=== PATIENT | female | born 1965 | race Caucasian/White ===

== ENCOUNTER → 2020-08-04 | Outpatient (CLI) | payer BC ==
--- NOTE | 2020-08-04 09:05 | BD ---
EXAMINATION TYPE: Axial Bone Density DATE OF EXAM: 08/04/2020 COMPARISON: NONE CLINICAL HISTORY: Postmenopausal female Height: 5 FT 1 1/2 IN Weight: 120 FRAX RISK QUESTIONS: Alcohol (3 or more units per day): NO Family History (Parent hip fracture): NO Glucocorticoids (More than 3mos): NO (Ex: prednisone, prednisolone, methylprednisolone, dexamethasone, and hydrocortisone). History of Fracture in Adulthood: NO Secondary Osteoporosis: NO 1. Type 1 Diabetes: NO 2. Hyperthyroidism: NO 3. Menopause before 45: NO 4. Malnutrition: NO 5. Chronic liver disease: NO Rheumatoid Arthritis: NO Current Tobacco Use: NO RISK FACTORS HISTORY OF: Surgery to Spine/Hip(right/left)/Wrist (right/left): NO Family History of Osteoporosis: NO Active: YES Diet low in dairy products/other sources of calcium: NO Postmenopausal woman: AGE 50 If Premenopausal, do you have irregular periods: NA Take estrogen and/or progesterone medications: NONE Lost more than 2 inches in height since high school: NO MEDICATIONS: Prednisone or other steroids: How Long: Thyroid Medications: Which medication: How Long: Osteoporosis Medications: Which medication: How Long: Additional Medications: NONE Additional History: EXAM MEASUREMENTS: Bone mineral densitometry was performed using the [employer] HR System. Bone mineral density as measured about the Lumbar spine is: ----- L1-L4(G/cm2): 1.061 T Score Values are as follows: ----- L2: -0.5 ----- L3: -0.1 ----- L4: -1.7 ----- L1-L4: -1.0 BASELINE Bone mineral density about the R hip (g/cm2): 0.865 Bone mineral density about the L hip (g/cm2): 0.825 T Score values are as follows: -----R Neck: -1.2 -----L Neck: -1.5 -----R Total: -0.8 -----L Total: -0.8 BASELINE IMPRESSION: Osteopenia (T Score between -2.5 and -1). There is slightly increased risk of fracture and the patient may be considered for treatment. Re-Screen 2-5 years. NOTE: T-SCORE=SD OF THE YOUNG ADULT MEAN.
[2020-08-04 09:12] LABS: HCT 39.8 % (34.0-46.0); HGB 12.7 gm/dL (11.4-16.0); MCH 29.2 pg (25.0-35.0); MCHC 31.9 g/dL (31.0-37.0); MCV 91.7 fL (80.0-100.0); Mean Platelet Volume 7.8; Platelet Count 195 k/uL (150-450); RBC 4.34 m/uL (3.80-5.40); RDW 13.7 % (11.5-15.5); WBC 5.6 k/uL (3.8-10.6)
[2020-08-04 11:11] LABS: C Reactive Protein <0.5 mg/dL (<1.0); Glucose 83 mg/dL (74-99)
[2020-08-04 11:26] LABS: T4, Free (Free Thyroxine) 0.88 ng/dL (0.78-2.19)
[2020-08-04 18:15] LABS: Hemoglobin A1C 5.8 % (4.0-6.0)
[2020-08-04 20:25] LABS: Chol/HDL Ratio 3.98; Cholesterol 223 mg/dL (0-200)
--- NOTE | 2020-08-06 09:07 | MM ---
Reason for exam: screening (asymptomatic). Last mammogram was performed 2 years and 4 months ago. History: Patient is postmenopausal. Took hormonal contraceptives for 10 years. Physical Findings: A clinical breast exam by your physician is recommended on an annual basis and results should be correlated with mammographic findings. MG Screening Mammo w CAD Bilateral CC and MLO view(s) were taken. Prior study comparison: March 27, 2018, bilateral MG screening mammo w CAD. January 15, 2016, bilateral MG screening mammo w CAD. There are scattered fibroglandular densities. No significant changes when compared with prior studies. ASSESSMENT: Negative, BI-RAD 1 RECOMMENDATION: Routine screening mammogram of both breasts in 1 year.
== END | disposition home or self-care (01) ==
LOC: RADMAMWWP 07:00
PROVIDERS: ATTEND Obstetrics & Gynecology
DX: Z12.31 Encounter for screening mammogram for malignant neoplasm of breast (principal); Z13.820 Encounter for screening for osteoporosis; M85.89 Other specified disorders of bone density and structure, multiple sites; Z78.0 Asymptomatic menopausal state
CPT/HCPCS: 77067; 77080; 80061; 82947; 83036; 84439; 84443; 84479; 85027; 86140

== ENCOUNTER → 2022-03-18 | Outpatient (CLI) | payer BC ==
[2022-03-18 15:31] LABS: Chol/HDL Ratio 4.24 Ratio; LDL Cholesterol,Calculated 194.2 mg/dL (0.0-131.0); VLDL Calculation 18.34 mg/dL (5.00-40.00)
--- NOTE | 2022-03-21 08:32 | MM ---
Reason for Exam: Screening (asymptomatic). Last mammogram was performed 1 year(s) and 8 month(s) ago. Patient History: Menarche at age 13. First Full-Term at age 26. Postmenopausal. Patient used Hormonal Contraceptives for 10 years. Risk Values: Danitza 5 year model risk: 1.4%. NCI Lifetime model risk: 8.9%. Prior Study Comparison: 01/15/2016 Bilateral Screening Mammogram, [facility]. 03/27/2018 Bilateral Screening Mammogram, [facility]. 08/04/2020 Bilateral Screening Mammogram, [facility]. Tissue Density: There are scattered fibroglandular densities. Findings: Analyzed By CAD. There is no suspicious group of microcalcifications or new suspicious mass in either breast. Overall Assessment: Negative, BI-RAD 1 Management: Screening Mammogram of both breasts in 1 year. A clinical breast exam by your physician is recommended on an annual basis and results should be correlated with mammographic findings. Electronically signed and approved by: Bryce Somers M.D.
== END | disposition home or self-care (01) ==
LOC: RADMAMWWP 08:03
PROVIDERS: ATTEND Obstetrics & Gynecology
DX: Z12.31 Encounter for screening mammogram for malignant neoplasm of breast (principal); Z13.220 Encounter for screening for lipoid disorders; Z78.0 Asymptomatic menopausal state
CPT/HCPCS: 77067; 80061

== ENCOUNTER 2022-06-22 10:02 | Emergency (ER) | payer BC ==
[2022-06-22 10:19] VITALS: TEMP 97.8
[2022-06-22 10:28] LABS: Glucose,Whole Blood 93 mg/dL (70-110)
--- NOTE | 2022-06-22 11:37 | ED ---
General Adult HPI - General Chief complaint: Neuro Symptoms/Deficit Stated complaint: Numb L hand and vertigo Time Seen by Provider: 06/22/22 10:26 Source: patient Mode of arrival: wheelchair Limitations: no limitations - History of Present Illness Initial comments: 56-year-old female with past medical history of rheumatoid arthritis who presents to the emergency department reporting left hand and left scalp tingling. States the symptoms started just prior to hospital arrival. She denies any weakness. No speech deficits. No headache or visual changes. Denies any trauma. No chiropractic manipulations of the neck. No history of stroke. No numbness or tingling in her leg. Yesterday she did have vertigo. This occasionally happens for the patient. She took Dramamine and has had complete resolution in the vertigo. She denies any chest pain or shortness of breath. No ripping or tearing sensation to her back. No other alleviating, precipitating or modifying factors - Related Data Home Medications Medication Instructions Recorded Confirmed Cephalexin [Keflex] 500 mg PO Q8HR 06/22/22 06/22/22 Allergies Allergy/AdvReac Type Severity Reaction Status Date / Time fluconazole [From Diflucan] Allergy Itching,hiv Verified 06/22/22 11:08 es Review of Systems ROS Statement: Those systems with pertinent positive or pertinent negative responses have been documented in the HPI. ROS Other: All systems not noted in ROS Statement are negative. Past Medical History Past Medical History: Rheumatoid Arthritis (RA) Additional Past Medical History / Comment(s): hx migraines, diarrhea, History of Any Multi-Drug Resistant Organisms: None Reported Past Surgical History: Tonsillectomy Past Anesthesia/Blood Transfusion Reactions: No Reported Reaction Past Psychological History: No Psychological Hx Reported Smoking Status: Never smoker Past Alcohol Use History: None Reported Past Drug Use History: None Reported - Past Family History Mother Family Medical History: No Reported History General Exam Limitations: no limitations General appearance: alert, in no apparent distress Head exam: Present: atraumatic, normocephalic, normal inspection Eye exam: Present: normal appearance, PERRL, EOMI. Absent: scleral icterus, conjunctival injection, periorbital swelling ENT exam: Present: normal exam, mucous membranes moist Neck exam: Present: normal inspection. Absent: tenderness, meningismus, lymphadenopathy Respiratory exam: Present: normal lung sounds bilaterally. Absent: respiratory distress, wheezes, rales, rhonchi, stridor Cardiovascular Exam: Present: regular rate, normal rhythm, normal heart sounds. Absent: systolic murmur, diastolic murmur, rubs, gallop, clicks GI/Abdominal exam: Present: soft, normal bowel sounds. Absent: distended, tenderness, guarding, rebound, rigid Extremities exam: Present: normal inspection, full ROM, normal capillary refill. Absent: tenderness, pedal edema, joint swelling, calf tenderness Back exam: Present: normal inspection Neurological exam: Present: alert, oriented X3, CN II-XII intact Psychiatric exam: Present: normal affect, normal mood Skin exam: Present: warm, dry, intact, normal color. Absent: rash Course Vital Signs 06/22/22 06/22/22 06/22/22 10:13 10:30 11:00 Temperature 97.8 F Pulse Rate 68 72 71 Respiratory 18 20 20 Rate Blood Pressure 121/81 128/68 120/63 O2 Sat by Pulse 99 98 98 Oximetry EKG Findings - EKG Comments: EKG Findings:: EKG demonstrates sinus rhythm with rate of 63. MA interval 130. QRS 90. QTc is 380. No acute ST segment elevations or depressions Medical Decision Making - Medical Decision Making Was pt. sent in by a medical professional or institution (, PA, SOCK EXAMINER, urgent care, hospital, or detention...) When possible be specific @ -No Did you speak to anyone other than the patient for history (EMS, parent, family, police, friend...)? What history was obtained from this source @ -No Did you review nursing and triage notes (agree or disagree)? Why? @ -I reviewed and agree with nursing and triage notes Were old charts reviewed (outside hosp., previous admission, EMS record, old EKG, old radiological studies, urgent care reports/EKG's, detention records)? Report findings @ -No old charts were reviewed Differential Diagnosis (chest pain, altered mental status, abdominal pain women, abdominal pain men, vaginal bleeding, weakness, fever, dyspnea, syncope, headache, dizziness, GI bleed, back pain, seizure, CVA, palpatations, mental health, musculoskeletal)? @ -cva, tia, peripheral neuropathy, carpal tunnel, brain mass EKG interpreted by me (3pts min.). @ -yes X-rays interpreted by me (1pt min.). @ -yes CT interpreted by me (1pt min.). @ -yes U/S interpreted by me (1pt. min.). @ -None done What testing was considered but not performed or refused? (CT, X-rays, U/S, lab s)? Why? @ -None What meds were considered but not given or refused? Why? @ -None Did you discuss the management of the patient with other professionals (professionals i.e. , PA, SOCK EXAMINER, lab, RT, psych nurse, social psychologist, manager social responsibility, teacher, supply officer, returned case inspector)? Give summary @ -No Was smoking cessation discussed for >3mins.? @ -No Was critical care preformed (if so, how long)? @ -No Were there social determinants of health that impacted care today? How? (Homelessness, low income, unemployed, alcoholism, drug addiction, transportation, low edu. Level, literacy, decrease access to med. care, retirement, rehab)? @ -No Was there de-escalation of care discussed even if they declined (Discuss DNR or withdrawal of care, Hospice)? DNR status @ -No What co-morbidities impacted this encounter? (DM, HTN, Smoking, COPD, CAD, Cancer, CVA, ARF, Chemo, Hep., AIDS, mental health diagnosis, sleep apnea, morbid obesity)? @ -None Was patient admitted / discharged? Hospital course, mention meds given and route, prescriptions, significant lab abnormalities, going to OR and other pertinent info. @ -Upon arrival patient was placed into trauma 1. Thorough history and physical exam was performed. An age is assessed and is 0 for the patient. IV is established and laboratory studies are conducted. 12-lead EKG is obtained. Laboratory studies are reviewed and are within normal limits. CT feels demonstrate any acute intracranial process. No aneurysm, dissection or stenosis . Results discussed the patient. She'll be discharged home at this time and needs felt apparent care doctor in 2-4 days. Return for any new or worsening symptoms. Discuss need for further testing to include MRI and neurology evaluation. Patient was agreeable as planned discharged home in stable condition Undiagnosed new problem with uncertain prognosis? @ -Yes Drug Therapy requiring intensive monitoring for toxicity (Heparin, Nitro, In sulin, Cardizem)? @ -No Were any procedures done? @ -No Diagnosis/symptom? @ -acute left hand and face paresthesias Acute, or Chronic, or Acute on Chronic? @ -acute Uncomplicated (without systemic symptoms) or Complicated (systemic symptoms)? @ -complicated Side effects of treatment? @ -No Exacerbation, Progression, or Severe Exacerbation? @ -No Poses a threat to life or bodily function? How? (Chest pain, USA, MD, pneumonia, PE, COPD, DKA, ARF, appy, cholecystitis, CVA, Diverticulitis, Homicidal, Suicidal, threat to staff... and all critical care pts) @ -No - Lab Data Result diagrams: 06/22/22 11:39 06/22/22 11:39 Lab Results 06/22/22 06/22/22 06/22/22 Range/Units 10:26 11:39 11:39 WBC 7.3 (3.8-10.6) k/uL RBC 4.92 (3.80-5.40) m/uL Hgb 14.6 (11.4-16.0) gm/dL Hct 44.6 (34.0-46.0) % MCV 90.7 (80.0-100.0) fL MCH 29.7 (25.0-35.0) pg MCHC 32.7 (31.0-37.0) g/dL RDW 13.1 (11.5-15.5) % Plt Count 170 (150-450) k/uL MPV 8.9 Neutrophils % 77 % Lymphocytes % 17 % Monocytes % 4 % Eosinophils % 1 % Basophils % 0 % Neutrophils # 5.6 (1.3-7.7) k/uL Lymphocytes # 1.2 (1.0-4.8) k/uL Monocytes # 0.3 (0-1.0) k/uL Eosinophils # 0.1 (0-0.7) k/uL Basophils # 0.0 (0-0.2) k/uL PT 13.1 H (9.0-12.0) sec INR 1.3 H (<1.2) APTT 31.6 H (22.0-30.0) sec Sodium (137-145) mmol/L Potassium (3.5-5.1) mmol/L Chloride (98-107) mmol/L Carbon Dioxide (22-30) mmol/L Anion Gap mmol/L BUN (7-17) mg/dL Creatinine (0.52-1.04) mg/dL Est GFR (CKD-EPI)AfAm (>60 ml/min/1.73 sqM) Est GFR (CKD-EPI)NonAf (>60 ml/min/1.73 sqM) Glucose (74-99) mg/dL POC Glucose (mg/dL) 93 (70-110) mg/dL POC Glu Program Engineer ID Leatha Chambers Calcium (8.4-10.2) mg/dL Total Bilirubin (0.2-1.3) mg/dL AST (14-36) U/L ALT (4-34) U/L Alkaline Phosphatase (38-126) U/L Creatine Kinase (30-135) U/L Troponin I (0.000-0.034) ng/mL Total Protein (6.3-8.2) g/dL Albumin (3.5-5.0) g/dL 06/22/22 06/22/22 Range/Units 11:39 11:39 WBC (3.8-10.6) k/uL RBC (3.80-5.40) m/uL Hgb (11.4-16.0) gm/dL Hct (34.0-46.0) % MCV (80.0-100.0) fL MCH (25.0-35.0) pg MCHC (31.0-37.0) g/dL RDW (11.5-15.5) % Plt Count (150-450) k/uL MPV Neutrophils % % Lymphocytes % % Monocytes % % Eosinophils % % Basophils % % Neutrophils # (1.3-7.7) k/uL Lymphocytes # (1.0-4.8) k/uL Monocytes # (0-1.0) k/uL Eosinophils # (0-0.7) k/uL Basophils # (0-0.2) k/uL PT (9.0-12.0) sec INR (<1.2) APTT (22.0-30.0) sec Sodium 140 (137-145) mmol/L Potassium 4.7 (3.5-5.1) mmol/L Chloride 105 (98-107) mmol/L Carbon Dioxide 28 (22-30) mmol/L Anion Gap 7 mmol/L BUN 18 H (7-17) mg/dL Creatinine 0.71 (0.52-1.04) mg/dL Est GFR (CKD-EPI)AfAm >90 (>60 ml/min/1.73 sqM) Est GFR (CKD-EPI)NonAf >90 (>60 ml/min/1.73 sqM) Glucose 88 (74-99) mg/dL POC Glucose (mg/dL) (70-110) mg/dL POC Glu Program Engineer ID Calcium 9.2 (8.4-10.2) mg/dL Total Bilirubin 0.7 (0.2-1.3) mg/dL AST 29 (14-36) U/L ALT 24 (4-34) U/L Alkaline Phosphatase 65 (38-126) U/L Creatine Kinase 81 (30-135) U/L Troponin I <0.012 (0.000-0.034) ng/mL Total Protein 7.5 (6.3-8.2) g/dL Albumin 4.5 (3.5-5.0) g/dL Disposition Clinical Impression: Left hand paresthesia Disposition: HOME SELF-CARE Condition: Stable Instructions (If sedation given, give patient instructions): Paresthesia (ED) Additional Instructions: Please monitoring yourr symptoms. Follow-up with her primary care doctor in 2-4 days. Return for any new or worsening symptoms Is patient prescribed a controlled substance at d/c from ED?: No Referrals: None,Stated [Primary Care Provider] - 1-2 days Time of Disposition: 13:54
--- NOTE | 2022-06-22 11:48 | XR ---
EXAMINATION TYPE: XR chest 2V DATE OF EXAM: 06/22/2022 11:36 AM COMPARISON: None TECHNIQUE: XR chest 2V Frontal and lateral views of the chest. CLINICAL INDICATION:Female, 56 years old with history of altered mental status; FINDINGS: Lungs/Pleura: There is no evidence of pleural effusion, focal consolidation, or pneumothorax. Pulmonary vascularity: Unremarkable. Heart/mediastinum: Cardiomediastinal silhouette is unremarkable. Musculoskeletal: No acute osseous pathology. IMPRESSION: No acute cardiopulmonary disease/process.
[2022-06-22 12:12] LABS: Basophils % (A) 0 %; Eosinophils # (A) 0.1 k/uL (0-0.7); Eosinophils % (A) 1 %; HCT 44.6 % (34.0-46.0); HGB 14.6 gm/dL (11.4-16.0); Lymphocytes # (A) 1.2 k/uL (1.0-4.8); Lymphocytes % (A) 17 %; MCH 29.7 pg (25.0-35.0); MCHC 32.7 g/dL (31.0-37.0); MCV 90.7 fL (80.0-100.0); Mean Platelet Volume 8.9; Monocytes # (A) 0.3 k/uL (0-1.0); Monocytes % (A) 4 %; Neutrophils # (A) 5.6 k/uL (1.3-7.7); Neutrophils % (A) 77 %; Platelet Count 170 k/uL (150-450); RBC 4.92 m/uL (3.80-5.40); RDW 13.1 % (11.5-15.5); WBC 7.3 k/uL (3.8-10.6)
[2022-06-22 12:17] LABS: ALT 24 U/L (4-34); African American GFR (CKD) >90 (>60 ml/min/1.73 sqM); Albumin 4.5 g/dL (3.5-5.0); Anion Gap 7 mmol/L; Blood Urea Nitrogen 18 mg/dL (7-17); Calcium 9.2 mg/dL (8.4-10.2); Carbon Dioxide 28 mmol/L (22-30); Chloride 105 mmol/L (98-107); Creatine Kinase 81 U/L (30-135); Glucose 88 mg/dL (74-99); Non-African American GFR(CKD) >90 (>60 ml/min/1.73 sqM); Sodium 140 mmol/L (137-145); Total Bilirubin 0.7 mg/dL (0.2-1.3); Total Protein 7.5 g/dL (6.3-8.2)
[2022-06-22 12:18] LABS: AST 29 U/L (14-36); Alkaline Phosphatase 65 U/L (38-126); Potassium 4.7 mmol/L (3.5-5.1)
[2022-06-22 12:41] LABS: INR 1.3 (<1.2); Partial Thromboplastin Time 31.6 sec (22.0-30.0); Prothrombin Time 13.1 sec (9.0-12.0)
--- NOTE | 2022-06-22 13:12 | CT ---
EXAMINATION TYPE: CT brain wo con CT DLP: 1102.6 mGycm, Automated exposure control for dose reduction was used. DATE OF EXAM: 06/22/2022 12:56 PM COMPARISON: None. CLINICAL INDICATION:Female, 56 years old with history of Neuro deficit, acute, stroke suspected, Left hand numb and vertigo TECHNIQUE: Brain: Multiple axial CT images of the brain were obtained without IV contrast. Coronal and sagittal reformats reviewed. FINDINGS: Brain: Extra-axial spaces: No abnormal extra-axial fluid collections. Ventricular system: Within normal limits Cerebral parenchyma: No acute intraparenchymal hemorrhage or mass effect. The jones-white junction is well differentiated. Cerebellum: Unremarkable. Mass effect: No evidence of midline shift. Intracranial vasculature: unremarkable Soft tissues: Normal. Calvarium/osseous structures: No depressed skull fracture. Paranasal sinuses and mastoid air cells: Clear Visualized orbits: Orbital contents are intact. IMPRESSION: No acute intracranial process.
[2022-06-22 13:27] VITALS: BP 120/63; PULSE 71; RESP 20
--- NOTE | 2022-06-22 13:32 | CT ---
EXAMINATION TYPE: CT angio head neck CT DLP: 318.9 mGycm, Automated exposure control for dose reduction was used. DATE OF EXAM: 06/22/2022 1:12 PM COMPARISON: 06/22/2022 brain. CLINICAL INDICATION:Female, 56 years old with history of Neuro deficit, acute, stroke suspected, Left hand numbness and vertigo TECHNIQUE: Axially acquired helical CT angiogram of the head and neck was obtained with contrast. Axi al images are supplemented with 3D reconstructions which [facility] NASCET criteria used. Contrast used:65 mL of Isovue 300 with IV Contrast, Oral contrast used: None. FINDINGS: CTA HEAD: No evidence of acute intracranial hemorrhage, mass effect, or midline shift. The ventricles, sulci, a nd cisterns are unremarkable. The visualized portions of the internal carotid arteries, middle cerebral arteries, anterior cerebral arteries, and posterior cerebral arteries are patent. The basilar and vertebral arteries are patent. CTA NECK: Right Carotid System: The common carotid artery and external carotid artery are patent. The carotid bifurcation demonstrate s no evidence of hemodynamically significant stenosis. The remaining portions of the internal carotid artery demonstrate normal size without significant narrowing. Left Carotid System: The common carotid artery and external carotid artery are patent. The carotid bifurcation demonstrate s no evidence of hemodynamically significant stenosis. The remaining portions of the internal carotid artery demonstrate normal size without significant narrowing. Vertebral arteries are patent without evidence hemodynamically significant stenosis. There is a three-vessel aortic arch. The origins of the great vessels are patent. No evidence of hemo dynamically significant stenosis. Upper thorax: IMPRESSION: 1. No evidence of dissection of the cervical internal carotid arteries or vertebral arteries or any e vidence of significant stenosis at the carotid bifurcations. 2. No evidence of intracranial high-grade stenosis or intracranial aneurysm.
== END 2022-06-22 14:00 | disposition home or self-care (01) ==
LOC: EC 10:02
DX: R20.2 Paresthesia of skin (principal); Z88.3 Allergy status to other anti-infective agents
CPT/HCPCS: 99284 ×2; 36415; 93005; 80053; 82550; 84484; 85025; 85610; 85730; 71046; 70496; 70450; 70498; Q9967

== ENCOUNTER → 2023-04-12 | Outpatient (CLI) | payer BC ==
--- NOTE | 2023-04-12 08:53 | BD ---
EXAMINATION TYPE: Axial Bone Density DATE OF EXAM: 04/12/2023 CLINICAL HISTORY: 57 years old Female. ICD-10 CODE: M85.88 OSTEOPENIA Height: 61.5 Weight: 133 FRAX RISK QUESTIONS: 3. Menopause before 45: no at 50yrs old RISK FACTORS nothing to note here HISTORY OF: MEDICATIONS: multi vitamin and vit d EXAM MEASUREMENTS: Bone mineral densitometry was performed using the [employer] System. Bone mineral density as measured about the Lumbar spine is: ----- L1-L4(G/cm2): 1.058 T Score Values are as follows: ----- L1: -2.1 ----- L2: 0.0 ----- L3: -0.3 ----- L4: -1.7 ----- L1-L4: -1.0 Z Score Values are as follows: ----- L1: -0.9 ----- L2: 1.2 ----- L3: 0.8 ----- L4: -0.5 ----- L1-L4: 0.1 Bone mineral density has: Decreased -0.3% since study of: 08.04.2020 Bone mineral density about the R hip (g/cm2): 0.911 Bone mineral density about the L hip (g/cm2): 0.901 T Score values are as follows: -----R Neck: -1.2 -----L Neck: -1.4 -----R Total: -0.8 -----L Total: -0.8 Z Score values are as follows: -----R Neck: 0.0 -----L Neck: -0.2 -----R Total: 0.1 -----L Total: 0.1 Bone mineral density has: Decreased -0.1% since study of: 08.04.2020 FRAX%s: The graph provided illustrates a 7.2% chance for a major osteoporotic fx and a 0.5% chance fo r the hips probability for fx in 10 years time. IMPRESSION: Normal (Values between +1 and -1 indicate normal bone mass). Consider repeating this study in 5 year s or sooner if there is some new clinical indication. NOTE: T-SCORE=SD OF THE YOUNG ADULT MEAN.
[2023-04-12 16:04] LABS: HCT 40.4 % (37.2-46.3); HGB 12.8 g/dL (12.0-15.0); MCH 29.8 pg (27.0-32.0); MCHC 31.7 g/dL (32.0-37.0); MCV 94.2 FL (80.0-97.0); NRBC Per 100 WBC 0 X 10*3/uL (0.00-0.01); Platelet Count 178 X 10*3/uL (140-440); RBC 4.29 X 10*6/uL (4.10-5.20); RDW 13.9 % (11.5-14.5); WBC 5.79 X 10*3/uL (4.50-10.00)
[2023-04-12 16:36] LABS: ALT 21 U/L (8-44); AST 14 U/L (13-35); Albumin 4.3 g/dL (3.8-4.9); Albumin/Globulin Ratio 2.15 Ratio (1.60-3.17); Alkaline Phosphatase 73 U/L (41-126); BUN/Creat Ratio 29.88 Ratio (12.00-20.00); Blood Urea Nitrogen 23.9 mg/dL (9.0-27.0); Calcium 9.1 mg/dL (8.7-10.3); Chloride 103 mmol/L (96-109); Chol/HDL Ratio 4.09 Ratio; Glucose 83 mg/dL (70-110); LDL Cholesterol,Calculated 162.6 mg/dL (0.0-131.0); Potassium 4.6 mmol/L (3.5-5.5); Sodium 140 mmol/L (135-145); Total Bilirubin <0.2 mg/dL (0.3-1.2); Total Protein 6.3 g/dL (6.2-8.2); VLDL Calculation 15.02 mg/dL (5.00-40.00)
--- NOTE | 2023-04-12 20:03 | MM ---
Reason for Exam: Screening (asymptomatic). Last screening mammogram was performed 12 month(s) ago. Patient History: Menarche at age 13. First Full-Term at age 26. Postmenopausal. Patient used Hormonal Contraceptives for 10 years. Risk Values: Danitza 5 year model risk: 1.4%. NCI Lifetime model risk: 8.7%. Prior Study Comparison: 03/27/2018 Bilateral Screening Mammogram, [facility]. 08/04/2020 Bilateral Screening Mammogram, [facility]. 03/18/2022 Bilateral MG screening mammo w CAD, [facility]. Tissue Density: There are scattered fibroglandular densities. Findings: Analyzed By CAD. Chronic nodularity on the right. There is no suspicious group of microcalcifications or new suspicious mass in either breast. Overall Assessment: Benign, BI-RAD 2 Management: Screening Mammogram of both breasts in 1 year. . Patient should continue monthly self-breast exams. A clinical breast exam by your physician is recommended on an annual basis. This exam should not preclude additional follow-up of suspicious palpable abnormalities. Note on Danitza scores and lifetime risk: 1. A Danitza score greater than 3% is considered moderate risk. If this is the case, consider specialist referral to assess eligibility for a risk reducing agent. 2. If overall lifetime risk for the development of breast cancer is 20% or higher, the patient may qualify for future screening with alternating mammogram and breast MRI. Electronically signed and approved by: Jerry Mena M.D. Radiologist
== END | disposition home or self-care (01) ==
LOC: RADMAMWWP 06:53
PROVIDERS: ATTEND Obstetrics & Gynecology
DX: Z12.31 Encounter for screening mammogram for malignant neoplasm of breast (principal); Z13.1 Encounter for screening for diabetes mellitus; Z13.29 Encounter for screening for other suspected endocrine disorder; Z13.220 Encounter for screening for lipoid disorders; M85.89 Other specified disorders of bone density and structure, multiple sites; Z78.0 Asymptomatic menopausal state
CPT/HCPCS: 36415; 77067; 77080; 80053; 80061; 83036; 84439; 84443; 84479; 85027